=== PATIENT | female | born 1995 | race Caucasian/White ===

== ENCOUNTER 2025-05-15 09:49 | Emergency (ER) | payer OTHER ==
[~2025-05-15] VITALS: Ht 165.1 cm; Wt 64.9 kg
[2025-05-15] MEDS ORDERED: CEFTRIAXONE SODIUM 1,000 MG VIAL IM ONE (11:00)
[2025-05-15] MEDS ORDERED: PHENAZOPYRIDINE HCL 100 MG TABLET PO ONE ×2 (11:00→11:03)
[2025-05-15] MEDS ORDERED: ACETAMINOPHEN 500 MG GEL..CAP PO ONE ×2 (11:00→11:03)
[2025-05-15] MEDS ORDERED: LIDOCAINE HCL/MPF 1% 5ML VIAL IJ ONE (11:04)
[2025-05-15] MEDS ORDERED: CEFTRIAXONE SODIUM 1,000 MG VIAL ONE (11:04)
[2025-05-15 12:55] LABS: URINE APPEARANCE Cloudy; URINE BILIRRUBIN Negative (NEGATIVE); URINE BLOOD Moderate; URINE COLOR Yellow; URINE GLUCOSE Negative (NEGATIVE); URINE KETONE Negative (NEGATIVE); URINE LEUKOCYTE Moderate; URINE NITRATE Negative; URINE PROTEIN 30 (NEGATIVE); URINE UROBILINOGEN 0.2 E.U./dl
[2025-05-15 13:00] LABS: URINE BACTERIA 5361.5 uL (0.0-1933); URINE EPITHELIAL CELLS 8.7 uL (0.0-38.8); URINE RBC 148.8 uL (0.0-20.8); URINE WBC 1760.2 uL (0.0-23.2)
[2025-05-15 13:13] LABS: URINE CAST 0.43 uL (0.0-1.40)
[2025-05-15 13:14] LABS: URINE CRYSTALS FEW /HPF
[2025-05-15] MEDS ORDERED: MACROBID 100 M100 MG PO (13:44)
[2025-05-15] MEDS ORDERED: PYRIDIUM100 M1 PO (13:44)
== END 2025-05-15 14:07 | disposition home or self-care (01) ==
LOC: ER 09:50
DX: N39.0 Urinary tract infection, site not specified (principal)